=== PATIENT | male | born 1950 | race Caucasian/White ===

== ENCOUNTER → 2018-04-17 | Outpatient (CLI) | payer MEDICARE | LOC: CARDREHAB 14:54 → VAS 14:54 → RAD 15:00 | DX: I51.9 Heart disease, unspecified (principal) ==

== ENCOUNTER → 2018-11-12 | Day surgery (SDC) | payer MEDICARE | LOC: MSO 07:28 | DX: H26.9 Unspecified cataract (principal); K21.9 Gastro-esophageal reflux disease without esophagitis; Z87.891 Personal history of nicotine dependence | CPT/HCPCS: A9270-GY; J0171; J2250 ==

== ENCOUNTER 2020-11-16 08:26 | Emergency (ER) | payer MEDICARE ==
[2020-11-16 09:03] LABS: EOS # 0.2 (0.04-0.40); EOS % 3.9 % (0.0-4.0); HEMOGLOBIN 14.7 g/dL (13.5-18.0); LYMPH# 1.6 (1.50-4.00); MEAN CELL VOLUME 93 fl (78-100); MEAN CORPUSCULAR HEMOGLOBIN 31 pg (27-31); MEAN CORPUSCULAR HGB CONC 33 g/dL (33-37); MEAN PLATELET VOLUME 9.4 fl (7.4-10.4); MONO # 0.5 (0.20-0.80); NEU # 2.8 (1.40-6.50); PLATELET COUNT 240 K/mm3 (130-400); RED BLOOD COUNT 4.75 M/mm3 (4.20-5.60); RED CELL DISTRIBUTION WIDTH 13.1 % (11.5-14.5); WHITE BLOOD COUNT 5.1 K/mm3 (4.8-10.8)
[2020-11-16 09:17] LABS: ALBUMIN 3.7 g/dL (3.4-4.8); POTASSIUM 4.1 mmol/L (3.5-5.1); SODIUM 139 mmol/L (136-145)
[2020-11-16 09:18] LABS: CALCIUM 8.6 mg/dL (8.3-10.5)
[2020-11-16 09:19] LABS: GLUCOSE 97 mg/dL (75-110)
[2020-11-16 09:20] LABS: TOTAL PROTEIN 6.4 g/dL (6.2-8.1)
[2020-11-16 09:21] LABS: CARBON DIOXIDE 26 mmol/L (23-31); TOTAL BILIRUBIN 0.8 mg/dL (0.2-1.2)
[2020-11-16 09:25] LABS: AST-SGOT 25 U/L (5-34)
[2020-11-16 09:26] LABS: ALT/SGPT 32 U/L (0-55)
[2020-11-16 09:34] LABS: TROPONIN-I < 0.03 ng/mL (<0.030)
[2020-11-16] MEDS ORDERED: GOOD NEIGHBOR M25 M1 PO (10:03)
[2020-11-16 10:47] VITALS: BP 116/78
== END 2020-11-16 10:30 | disposition home or self-care (01) ==
LOC: ED 08:26
PROVIDERS: Physician Assistant
DX: R07.9 Chest pain, unspecified (principal)

== ENCOUNTER 2022-02-07 08:58 | Outpatient (RCR) | payer MEDICARE ==
[~2022-02-07 08:58] MED LIST: GOOD NEIGHBOR M25 M1 PO
== END 2022-02-27 | disposition still patient (30) ==
LOC: PT
DX: M19.011 Primary osteoarthritis, right shoulder (principal)

== ENCOUNTER 2022-03-01 08:44 | Outpatient (RCR) | payer MEDICARE | END 2022-03-29 | disposition home or self-care (01) | LOC: PT | DX: M19.011 Primary osteoarthritis, right shoulder (principal) ==

== ENCOUNTER 2022-03-30 08:26 | Outpatient (RCR) | payer MEDICARE | END 2022-04-29 | disposition home or self-care (01) | LOC: PT | DX: M19.011 Primary osteoarthritis, right shoulder (principal) ==

== ENCOUNTER 2022-05-01 07:47 | Outpatient (RCR) | payer MEDICARE | END 2022-05-30 | disposition home or self-care (01) | LOC: PT | DX: M19.011 Primary osteoarthritis, right shoulder (principal) ==

== ENCOUNTER 2022-07-03 07:58 | Outpatient (RCR) | payer MEDICARE | END 2022-07-30 | disposition still patient (30) | LOC: PT | DX: M19.011 Primary osteoarthritis, right shoulder (principal); Z96.611 Presence of right artificial shoulder joint ==

== ENCOUNTER 2022-07-31 08:00 | Outpatient (RCR) | payer MEDICARE | END 2022-08-29 16:24 | disposition home or self-care (01) | LOC: PT 08:00 | DX: M19.011 Primary osteoarthritis, right shoulder (principal) ==